=== PATIENT | male | born 1935 | race Caucasian/White ===

== ENCOUNTER → 2016-11-14 | Outpatient (CLI) | payer MEDICARE, OTHER ==
[~2016-11-14] MED LIST: ASPIRIN 81M81 MG/TA2 PO; FLAGYL500 MG PO; FOSAMAX 70MG TA70 MG PO; LEVAQUIN 5500 MG/TA1 PO; LORTAB 7.5/5001 TAB PO; RT SPIRIVA18 MCG IH; ZESTRIL 20MG TA20 MG PO
== END ==
LOC: COL.RAD 08:02
DX: I70.0 Atherosclerosis of aorta (principal); F17.200 Nicotine dependence, unspecified, uncomplicated

== ENCOUNTER → 2020-03-10 | Outpatient (CLI) | payer MEDICARE, OTHER | LOC: COL.RAD 09:00 | DX: J47.9 Bronchiectasis, uncomplicated (principal); J98.6 Disorders of diaphragm ==